=== PATIENT | male | born 1930 | race Caucasian/White ===

== ENCOUNTER 2016-11-18 19:19 | Emergency (ER) | payer OTHER | END 2016-11-18 22:54 | disposition home or self-care (01) | LOC: D.ER 19:19 | DX: S51.811A Laceration without foreign body of right forearm, initial encounter (principal); W19.XXXA Unspecified fall, initial encounter; Y93.89 Activity, other specified; Y92.019 Unspecified place in single-family (private) house as the place of occurrence of the external cause; D32.0 Benign neoplasm of cerebral meninges; S01.81XA Laceration without foreign body of other part of head, initial encounter; G20 Parkinson's disease ==

== ENCOUNTER 2016-11-27 17:17 | Emergency (ER) | payer OTHER | END 2016-11-27 19:47 | disposition home or self-care (01) | LOC: D.ER 17:17 | DX: S01.81XD Laceration without foreign body of other part of head, subsequent encounter (principal); X58.XXXD Exposure to other specified factors, subsequent encounter; Y92.89 Other specified places as the place of occurrence of the external cause; Z48.02 Encounter for removal of sutures; G20 Parkinson's disease ==

== ENCOUNTER 2018-01-12 15:42 | Emergency (ER) | payer OTHER ==
[~2018-01-12] VITALS: Ht 167.6 cm; Wt 63.6 kg
[2018-01-12 16:09] VITALS: Ht 167.6 cm; Wt 63.6 kg
[2018-01-12] MEDS ORDERED: ACETAMINOPHEN325 MG PO (16:13)
[2018-01-12] MEDS ORDERED: AMANTADINE100 M1 PO (16:13)
[2018-01-12] MEDS ORDERED: VITAMIN D2000 UNIT PO (16:13)
[2018-01-12] MEDS ORDERED: CLOTRIMAZOLE10 ML TOPICAL (16:14)
[2018-01-12] MEDS ORDERED: VITAMIN B-121000 MCG PO (16:14)
[2018-01-12] MEDS ORDERED: NIZORAL 2 % SH120 ML (16:15)
[2018-01-12] MEDS ORDERED: FUROSEMIDE20 MG PO (16:15)
[2018-01-12] MEDS ORDERED: GUAIFENESI100 MG/5 M PO (16:15)
[2018-01-12] MEDS ORDERED: XALATAN 0.0052.5 ML EACH EYE (16:16)
[2018-01-12] MEDS ORDERED: POTASSIUM20 MEQ/15 PO (16:17)
[2018-01-12] MEDS ORDERED: NITROQUICK0.4 MG SL (16:17)
[2018-01-12] MEDS ORDERED: FLOMAX0.4 MG PO (16:17)
[2018-01-12] MEDS ORDERED: HYDROCODON-ACE1 EAC7 PO (17:19)
[2018-01-12 17:41] VITALS: BP 132/73
== END 2018-01-12 17:42 | disposition home or self-care (01) ==
LOC: D.ER 15:42
DX: S42.292A Other displaced fracture of upper end of left humerus, initial encounter for closed fracture (principal); W18.30XA Fall on same level, unspecified, initial encounter; Y93.89 Activity, other specified; Y92.019 Unspecified place in single-family (private) house as the place of occurrence of the external cause; G20 Parkinson's disease; F03.90 Unspecified dementia, unspecified severity, without behavioral disturbance, psychotic disturbance, mood disturbance, and anxiety; E11.9 Type 2 diabetes mellitus without complications